=== PATIENT | male | born 1980 | race Caucasian/White ===

== ENCOUNTER 2019-03-22 17:01 | Emergency (ER) ==
--- NOTE | 2019-03-22 17:20 | ED.PDOC ---
General ED Provider: Dr. CAROL CHARLES MD Chief Complaint: Hyperthermia Stated Complaint: possible heat stroke Time Seen by Physician: 17:13 Mode of Arrival: Ambulance Information Source: Patient Exam Limitations: No limitations Primary Care Provider: KIKO MARQUEZ Nursing and Triage Documentation Reviewed and Agree: Yes Does patient meet sepsis criteria?: No If yes, has appropriate treatment been initiated?: Yes System Inflammatory Response Syndrome: Not Applicable Sepsis Protocol: For patient's 13 years and over: Temp is 96.8 and below OR 101 and greater Pulse >90 BPM Resp >20/minute Acutely Altered Mental Status Are patient's symptoms suggestive of a new infection, such as: -Pneumonia -Skin, Soft Tissue -Endocarditis -UTI -Bone, Joint Infection -Implantable Device -Acute Abdominal Infection -Wound Infection -Meningitis -Blood Stream Catheter Infection -Unknown Review of Systems - Review Of Systems Constitutional: Reports: Weakness Eyes: Reports: No symptoms Ears, Nose, Mouth, Throat: Reports: No symptoms Respiratory: Reports: No symptoms Cardiac: Reports: No symptoms GI: Reports: No symptoms : Reports: No symptoms Musculoskeletal: Reports: No symptoms Skin: Reports: No symptoms Neurological: Reports: No symptoms Endocrine: Reports: No symptoms Hematologic/Lymphatic: Reports: No symptoms All Other Systems: Reviewed and Negative Past Medical History - Past Medical History Previously Healthy: Yes Endocrine: Reports: None Cardiovascular: Reports: None Respiratory: Reports: None Hematological: Reports: None Gastrointestinal: Reports: None Genitourinary: Reports: None Neuro/Psych: Reports: None Musculoskeletal: Reports: None Cancer: Reports: None - Surgical History General Surgical History: Reports: None - Family History Family History: Reports: None - Social History Smoking Status: Never smoker Hx Substance Use: No Alcohol Screening: None Physical Exam - Physical Exam Appearance: Obese Eyes: MARY, EOMI, Conjunctiva clear ENT: Ears normal, Nose normal, Oropharynx normal Respiratory: Airway patent, Breath sounds clear, Breath sounds equal, Respirations nonlabored Cardiovascular: RRR, Pulses normal, No rub, No murmur GI/: Soft, Nontender, No masses, Bowel sounds normal, No Organomegaly Musculoskeletal: Normal strength, ROM intact, No edema, No calf tenderness Skin: Warm, Dry, Normal color Neurological: Sensation intact, Motor intact, Reflexes intact, Cranial nerves intact, Alert, Oriented Psychiatric: Affect appropriate, Mood appropriate Critical Care Note - Critical Care Note Total Time (mins): 0 Course - Course Hematology/Chemistry: 03/22/19 17:27 03/22/19 17:27 Orders, Labs, Meds: Lab Review 03/22/19 03/22/19 03/22/19 17:27 17:27 17:38 WBC 9.89 RBC 4.47 L Hgb 14.0 Hct 40.7 L MCV 91.1 MCH 31.3 H MCHC 34.4 RDW Coeff of Crow 11.7 Plt Count 208 Immature Gran % (Auto) 0.5 Neut % (Auto) 72.9 Lymph % (Auto) 16.0 [place] % (Auto) 9.5 Eos % (Auto) 0.7 Baso % (Auto) 0.4 Immature Gran # (Auto) 0.1 Neut # (Auto) 7.2 H Lymph # (Auto) 1.6 [place] # (Auto) 0.9 Eos # (Auto) 0.1 Baso # (Auto) 0.0 Sodium 138.4 Potassium 4.74 Chloride 105.0 Carbon Dioxide 24.9 Anion Gap 13.24 BUN 18.0 Creatinine 1.95 H Estimated GFR (MDRD) 39.00 BUN/Creatinine Ratio 9.23 Glucose 86.8 Calcium 8.86 Total Bilirubin 1.17 AST 27.0 ALT 43.6 Alkaline Phosphatase 42.8 Total Protein 6.90 Albumin 4.15 Globulin 2.75 Albumin/Globulin Ratio 1.50 Urine Color Yellow Urine Clarity Clear Urine pH 5.5 Ur Specific [place] 1.020 Urine Protein 1+ Urine Glucose (UA) Negative Urine Ketones Negative Urine Blood Negative Urine Nitrite Negative Urine Bilirubin Negative Urine Urobilinogen 0.2 Ur Leukocyte Esterase Negative Urine Microscopic WBC 0-2 Ur Squamous Epith Cells 0-2 Orders Category Date Time Status CBC W/ AUTO DIFF Stat LAB 03/22/19 17:27 Completed CMP [COMPREHENSIVE METABOLIC PANEL] Stat LAB 03/22/19 17:27 Completed UA [URINALYSIS C & S IF INDICATED] Stat LAB 03/22/19 17:38 Completed Sodium Chloride 0.9% [Sodium Chloride] 1,000 ml MEDS 03/22/19 17:20 Discontinued IV BOLUS Medications Discontinued Medications Generic Name Dose Route Start Last Admin Trade Name Freq PRN Reason Stop Dose Admin Sodium Chloride 1,000 mls @ 1,000 mls/hr 03/22/19 17:20 06/30/19 17:27 Sodium Chloride IV 03/22/19 18:19 1,000 mls/hr BOLUS STA Administration Vital Signs: Temp Pulse Resp BP Pulse Ox 03/22/19 17:01 97.2 F L 80 20 119/71 99 Departure - Departure Time of Disposition: 18:30 Disposition: HOME SELF-CARE Discharge Problem: Dehydration after exertion Heat stress Qualifiers: Encounter type: initial encounter Qualified Code(s): T67.8XXA - Other effects of heat and light, initial encounter Instructions: Dehydration (ED) Condition: Good Pt referred to PMD for follow-up: Yes IPMP verified?: No Allergies/Adverse Reactions: Allergies No Known Allergies Allergy (Verified 03/22/19 17:09) Home Medications: Ambulatory Orders Lisinopril 10 mg PO DAILY 03/22/19 Transfer Form Completed: No Disposition Discussed With: Patient, Family
[2019-03-22 17:21] VITALS: BP 119/71; TEMP 97.2; BMI 37.7
[2019-03-22] MEDS: SODIUM CHLORIDE 1,000 ML IV STA (17:27)
== END 2019-03-22 18:38 | disposition home or self-care (01) ==
LOC: ED 17:01
DX: T67.8XXA Other effects of heat and light, initial encounter (principal); E86.0 Dehydration; R53.1 Weakness
CPT/HCPCS: 36415; 80053; 81001; 85025; 96360; 99283